=== PATIENT | female | born 1985 | race Caucasian/White ===

== ENCOUNTER 2021-07-20 13:34 | Emergency (ER) | payer MEDICAID ==
[~2021-07-20] VITALS: Ht 154.9 cm; Wt 68.0 kg
[~2021-07-20 13:34] MED LIST: EPIPEN 2-P0.3 MG/0.3 IM
[2021-07-20] MEDS ORDERED: PREDNISONE 20 M20 MG PO (15:32)
[2021-07-20 15:59] VITALS: BP 144/88
== END 2021-07-20 15:59 | disposition home or self-care (01) ==
LOC: M.ERS 13:34
DX: T78.1XXA Other adverse food reactions, not elsewhere classified, initial encounter (principal); R21 Rash and other nonspecific skin eruption; R07.89 Other chest pain; Z91.018 Allergy to other foods; Z79.899 Other long term (current) drug therapy; X58.XXXA Exposure to other specified factors, initial encounter